=== PATIENT | female | born 1940 | race Caucasian/White ===

== ENCOUNTER 2019-08-26 10:48 | Outpatient (CLI) | payer MEDICARE, OTHER, SELFPAY ==
--- NOTE | 2019-08-26 10:50 | MM_ITS ---
WS: [id number] BILATERAL SCREENING DIGITAL MAMMOGRAM WITH CAD HISTORY: SCREENING COMPARISON: 10/08/2017 and 03/28/2015 Bilateral CC and MLO views submitted. Computer aided detection analyzed. Breast composition: There are scattered areas of fibroglandular density. No suspicious masses, microc alcifications or architectural distortion. Numerous diffuse scattered calcifications throughout each breast are stable. MM/[id number] IMPRESSION: BI-RADS: 2-Benign FOLLOW UP: 1 Year Follow-up
== END 2019-08-26 10:49 | disposition home or self-care (01) ==
LOC: RADSHAW 10:48
PROVIDERS: Family Provider Family Medicine; PCP Family Medicine; Visit Provider Family Medicine
DX: Z12.31 Encounter for screening mammogram for malignant neoplasm of breast (principal)
CPT/HCPCS: 77067

== ENCOUNTER 2021-02-17 13:59 | Outpatient (CLI) | payer MEDICARE, OTHER, SELFPAY ==
--- NOTE | 2021-02-17 14:11 | MM_ITS ---
WS: [id number] DIAGNOSTIC BILATERAL DIGITAL MAMMOGRAM WITH CAD RIGHT breast ultrasound, limited HISTORY: RIGHT BREAST PAIN COMPARISON: 08/26/2019, 10/08/2017 TECHNIQUE: Bilateral craniocaudad, mediolateral oblique, and mediolateral views are submitted. Spot c ompression RIGHT CC. Computer aided detection utilized. Breast composition: There are scattered areas of fibroglandular density. Numerous calcifications with in each breast are scattered throughout. Similar distribution as the prior study. Breast arterial wilfredo cifications are also noted. No abnormality noted within either breast of any concern. RIGHT breast ultrasound, limited. Ultrasound is directed to the area of pain. From 7-12 o'clock no ab normality is identified. There is a small cyst posterior to the areolar at 11:00. No mass or shadowin g. MM/[id number] IMPRESSION: BI-RADS: 2-Benign FOLLOW UP: 1 Year Follow-up
== END 2021-02-17 14:00 | disposition home or self-care (01) ==
LOC: RADSHAW 14:08
PROVIDERS: PCP Family Medicine; Visit Provider Family Medicine
DX: N64.4 Mastodynia (principal)
CPT/HCPCS: 76642; 77066

== ENCOUNTER → 2025-03-31 14:28 | Outpatient (BNVA) | payer MEDICARE, OTHER, SELFPAY | PROVIDERS: PCP Family Medicine; Visit Provider Nurse Practitioner Family | DX: D22.39 Melanocytic nevi of other parts of face (principal); L82.0 Inflamed seborrheic keratosis; D69.2 Other nonthrombocytopenic purpura; L57.8 Other skin changes due to chronic exposure to nonionizing radiation; R20.8 Other disturbances of skin sensation; Z78.9 Other specified health status; L53.8 Other specified erythematous conditions; D48.5 Neoplasm of uncertain behavior of skin; L57.0 Actinic keratosis | CPT/HCPCS: 11102; 17000; 17110; 99203 ==